=== PATIENT | female | born 1935 | race Hispanic/Latino ===

== ENCOUNTER 2017-03-29 09:01 | Inpatient (IN) | payer MEDICARE, BC ==
[2017-03-29 09:49] LABS: BASO # 0.01 K/mm3 (0.0-2.0); BASO % 0.3 % (0.0-3.0); EOS % 0.8 % (1.5-5.0); GRAN # 2.37 (1.4-6.5); GRAN % 64.2 % (50.0-68.0); HEMATOCRIT 33.1 % (36.0-48.0); LYMPH % 26.8 % (22.0-35.0); MEAN CELL VOLUME 81.5 fl (80.0-105.0); MEAN CORPUSCULAR HEMOGLOBIN 28.1 pg (25.0-35.0); MEAN CORPUSCULAR HGB CONC 34.4 g/dl (31.0-37.0); MEAN PLATELET VOLUME 8.1 fl (7.0-11.0); MONO # 0.3 (0.1-0.6); MONO % 7.9 % (1.0-6.0); RED CELL DISTRIBUTION WIDTH 13.3 % (11.5-14.5); WHITE BLOOD COUNT 3.7 10^3/ul (4.5-11.0)
[2017-03-29 09:58] LABS: ALB/GLOB RATIO 1.7 (1.1-1.8); ALKALINE PHOSPHATASE 63 U/L (38-126); ALT/SGPT 25 U/L (7-56); AST/SGOT 26 U/L (14-36); BILIRUBIN,TOTAL 0.4 mg/dL (0.2-1.3); BLOOD UREA NITROGEN 13 mg/dL (7-21); CALCIUM 9.5 mg/dL (8.4-10.5); CARBON DIOXIDE 28 mmol/L (21-33); CHLORIDE 97 mmol/L (98-107); GFR AFRICAN-AMERICAN > 60; GLUCOSE,RANDOM 129 mg/dL (70-110); LIPASE 21 U/L (23-300); POTASSIUM 4.4 mmol/L (3.6-5.0); SODIUM 134 mmol/L (132-148); TOTAL PROTEIN 6.9 g/dL (5.8-8.3)
--- NOTE | 2017-03-29 10:07 | RAD ---
HISTORY: Abdominal pain COMPARISON: 06/21/2016. FINDINGS: LUNGS: The lungs are hyperinflated and there is peribronchial thickening with chronic changes in both lungs. No focal consolidation. PLEURA: No significant pleural effusion identified, no pneumothorax apparent. CARDIOVASCULAR: Normal. OSSEOUS STRUCTURES: No significant abnormalities. VISUALIZED UPPER ABDOMEN: Normal. OTHER FINDINGS: None. IMPRESSION: No active pulmonary disease. COPD.
--- NOTE | 2017-03-29 10:13 | ED PDOC ---
Arrival/HPI - General Historian: Patient - History of Present Illness Time/Duration: > week Symptom Onset: Gradual Symptom Course: Worsening Quality: Cramping - General Chief Complaint: Abdominal Pain Time Seen by Provider: 03/29/17 09:20 - History of Present Illness Narrative History of Present Illness (Text): 03/29/17 10:06 81-year-old female presents today with lower abdominal pain and constipation 4 days. Patient describes a crampy sensation in the lower abdomen. Patient states she's been feeling extremely weak for the past 2 weeks and today she was unable to get out of bed. Patient denies chest pain or shortness of breath. Denies fevers or chills. Denies nausea or vomiting. Denies dizziness. Denies headache. Patient's history prior history of urinary tract infections in the past. (Leti Bedoya) Past Medical History - Provider Review Nursing Documentation Reviewed: Yes - Travel History Have you recently traveled outside [place] w/in the past 3 mons?: No - Infectious Disease Hx of Infectious Diseases: None - Tetanus Immunization Tetanus Immunization: Unknown - Cardiac Hx Cardiac Disorders: Yes Hx Hypertension: Yes Hx Peripheral Edema: Yes - Pulmonary Hx Respiratory Disorders: Yes Hx Asthma: (pt denies) - Neurological Hx Neurological Disorder: Yes Hx Dizziness: Yes Hx Parkinson's Disease: Yes Other/Comment: peripheral neuropathy numbness/burning to legs and feet - HEENT Hx HEENT Disorder: Yes (tinnitus) Hx Glaucoma: Yes Other/Comment: Wear glasses - Renal Hx Renal Disorder: No - Endocrine/Metabolic Hx Endocrine Disorders: Yes Hx Diabetes Mellitus Type 2: Yes - Hematological/Oncological Hx Blood Disorders: Yes Hx Anemia: Yes Hx Cancer: Yes (right breast lumpectomy followed with 6 wks of radiation) - Integumentary Hx Dermatological Disorder: Yes - Musculoskeletal/Rheumatological Hx Musculoskeletal Disorders: Yes 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) Hx Back Pain: Yes (chronic lower back) Hx Falls: No Hx Osteoarthritis: Yes Hx Unsteady Gait: Yes (walker) - Gastrointestinal Hx Gastrointestinal Disorders: Yes (constipation) - Genitourinary/Gynecological Hx Genitourinary Disorders: Yes (3 C/S) Hx Incontinence: Yes Hx Urinary Tract Infection: Yes - Psychiatric Hx Psychophysiologic Disorder: Yes Hx Depression: Yes Hx Substance Use: No - Surgical History Hx Hysterectomy: Yes (secondary to fibroid uterus) Hx Mastectomy: Yes (right breast) Hx Orthopedic Surgery: Yes (bilateral TKR) Other/Comment: pt denies foot sx - Anesthesia Hx Anesthesia: Yes Hx Anesthesia Reactions: No Hx Malignant Hyperthermia: No - Suicidal Assessment Feels Threatened In Home Enviroment: No Family/Social History - Physician Review Nursing Documentation Reviewed: Yes Family/Social History: Unknown Family HX Smoking Status: Never Smoked Hx Alcohol Use: No Hx Substance Use: No Hx Substance Use Treatment: No Allergies/Home Meds Allergies/Adverse Reactions: Allergies shellfish derived Allergy (Verified 03/29/17 09:04) SWELLING Home Medications: Home Meds Medication Instructions Recorded Confirmed Ergocalciferol (Vitamin D2) 50,000 units PO .WEEKLY 03/27/16 03/29/17 [Vitamin D] Lisinopril [Zestril] 10 mg PO DAILY 03/27/16 03/29/17 Gabapentin [Neurontin] 100 mg PO TID 06/21/16 03/29/17 metFORMIN [glucOPHAGE] 500 mg PO BID 06/21/16 03/29/17 Amitriptyline [Elavil] 30 mg PO HS 03/29/17 03/29/17 Review of Systems - Review of Systems Constitutional: Fatigue. absent: Fevers Respiratory: absent: SOB, Cough Cardiovascular: absent: Chest Pain, Palpitations Gastrointestinal: Abdominal Pain, Constipation. absent: Nausea, Vomiting Genitourinary Female: absent: Dysuria Musculoskeletal: absent: Arthralgias, Back Pain Skin: absent: Rash, Pruritis Neurological: absent: Headache, Dizziness Psychiatric: absent: Anxiety, Depression Physical Exam Vital Signs Reviewed: Yes Temperature: Afebrile Blood Pressure: Hypertensive Pulse: Regular Respiratory Rate: Normal Appearance: Positive for: Well-Appearing, Non-Toxic, Comfortable Pain Distress: None Mental Status: Positive for: Alert and Oriented X 3 - Systems Exam Head: Present: Atraumatic Mouth: Present: Moist Mucous Membranes Neck: Present: Normal Range of Motion Respiratory/Chest: Present: Clear to Auscultation, Good Air Exchange. No: Respiratory Distress, Accessory Muscle Use Cardiovascular: Present: Regular Rate and Rhythm, Normal S1, S2. No: Murmurs Abdomen: Present: Tenderness (+ minimal lower abdominal tenderness), Normal Bowel Sounds. No: Peritoneal Signs, Rebound, Guarding Back: Present: Normal Inspection Skin: Present: Warm, Dry Psychiatric: Present: Alert Vital Signs Temp Pulse Resp BP Pulse Ox 03/29/17 10:57 73 18 146/64 97 03/29/17 09:12 176/84 H 03/29/17 09:04 98.1 F 80 16 199/67 H 99 Medical Decision Making ED Course and Treatment: 03/29/17 10:49 I was available for consultation during PA evaluation. The chart was reviewed by me, and I agree with disposition. The documented history was done by the physician crop or grain farmer. The documented physical exam was done by the physician crop or grain farmer. The documented procedures were done by the physician crop or grain farmer. (Rubens Ortez) 03/29/17 10:13 81yr old female with generalized weakness and abdominal pain that has been worsening. cbc wnl cmp wnl trop wnl lipase wnl ekg; sinus rhythm with frequent pvcs and pacs no st elevations, normal intervals. cxr wnl UA: + bacteria; TNTC wbcs urine and blood cultures pending. 03/29/17 11:30 pt started on rocephin IV CT abdomen/pelvis; FINDINGS: LOWER THORAX: The lung bases are clear. LIVER: The liver is normal in size. No intrahepatic biliary ductal dilatation. GALLBLADDER AND BILE DUCTS: There are no calcified gallstones. There is layering gallbladder sludge. PANCREAS: There is mild diffuse atrophy of the pancreas. No ductal dilatation or calcifications. SPLEEN: The spleen is normal in size. ADRENALS: There is a 10 mm adenoma in the right adrenal gland and 18 mm adenoma in the left adrenal gland. KIDNEYS AND URETERS: Both kidneys are normal in size without hydronephrosis or nephrolithiasis. VASCULATURE: There are atherosclerotic aortoiliac calcifications. No aortic aneurysm. BOWEL: The small bowel loops are normal in caliber. There is fecalization of small bowel contents. There is large amount of stool in the colon and rectum. No bowel obstruction. APPENDIX: Normal appendix. PERITONEUM: No free fluid. No free air. LYMPH NODES: No enlarged lymph nodes. BLADDER: Unremarkable. REPRODUCTIVE: Unremarkable. BONES: No acute fracture. There is severe dextroscoliosis in the lumbar spine with multilevel degenerative disc disease. OTHER FINDINGS: None. IMPRESSION: 1. No acute abdominal or pelvic abnormality. 2. Constipation and fecalization of small bowel contents consistent with chronic stasis. No bowel obstruction. 3. Bilateral adrenal gland adenomas, larger on the left. case discussed with dr. mendoza; accepts admission impression; uti, generalized weakness admit med/surg; (Leti Bedoya) - Lab Interpretations Lab Results: 03/29/17 09:44 03/29/17 09:44 Lab Results 03/29/17 10:10: Lactate Dehydrogenase 325 L, Total Creatine Kinase < 20 L, Troponin I < 0.01 03/29/17 10:03: Urine Color Yellow, Urine Appearance Clear, Urine pH 6.5, Ur Specific [place] 1.015, Urine Protein Negative, Urine Glucose (UA) Negative, Urine Ketones Trace H, Urine Blood Negative, Urine Nitrate Negative, Urine Bilirubin Negative, Urine Urobilinogen 0.2, Ur Leukocyte Esterase Moderate H, Urine RBC Negative, Urine WBC Tntc, Ur Epithelial Cells 3 - 4, Urine Bacteria Mod 03/29/17 09:44: WBC 3.7 L D, RBC 4.06, Hgb 11.4 L, Hct 33.1 L, MCV 81.5, MCH 28.1, MCHC 34.4, RDW 13.3, Plt Count 262, MPV 8.1, Gran % 64.2, Lymph % (Auto) 26.8, [place] % (Auto) 7.9 H, Eos % (Auto) 0.8 L, Baso % (Auto) 0.3, Gran # 2.37, Lymph # 1.0 L, [place] # 0.3, Eos # 0.0, Baso # 0.01 03/29/17 09:44: Sodium 134, Potassium 4.4, Chloride 97 L, Carbon Dioxide 28, Anion Gap 13, BUN 13, Creatinine 0.6, Est GFR ( Amer) > 60, Est GFR (Non- Af Amer) > 60, Random Glucose 129 H, Calcium 9.5, Total Bilirubin 0.4, AST 26, ALT 25, Alkaline Phosphatase 63, Total Protein 6.9, Albumin 4.3, Globulin 2.6, Albumin/Globulin Ratio 1.7, Lipase 21 L - RAD Interpretation Radiology Orders: 03/29/17 09:21 CHEST PORTABLE [RAD] Stat 03/29/17 09:40 ABD & PELVIS W/O PO OR IV CONT [CT] Stat - Medication Orders Current Medication Orders: Discontinued Medications Ceftriaxone Sodium (Rocephin 1 Gram Ivpb) 1 g in 100 mls @ 200 mls/hr IVPB STAT STA PRN Reason: Protocol Stop: 03/29/17 11:43 Last Admin: 03/29/17 11:31 Dose: 200 mls/hr eMAR Start Stop Document 03/29/17 11:31 [facility] (Rec: 03/29/17 11:32 [facility] [id number]) Intravenous Solution Start Date 03/29/17 Start Time 11:31 End Date 03/29/17 End time 12:01 Total Infusion Time 30 Disposition/Present on Arrival - Present on Arrival Any Indicators Present on Arrival: No History of DVT/PE: No History of Uncontrolled Diabetes: No Urinary Catheter: No History of Decub. Ulcer: No History Surgical Site Infection Following: None - Disposition Have Diagnosis and Disposition been Completed?: Yes Disposition Time: 11:41 Patient Plan: Admission - Disposition Diagnosis: UTI (urinary tract infection), Weakness Disposition: HOSPITALIZED Patient Problems: Current Active Problems Problem Status Onset UTI (urinary tract infection) Acute Weakness Acute Condition: FAIR Discharge Instructions (ExitCare): Weakness (ED) Forms: [facility] (Urdu)
[2017-03-29 10:16] LABS: PH,URINE 6.5 (4.7-8.0); URINE BILIRUBIN NEGATIVE (NEGATIVE); URINE BLOOD NEGATIVE (NEGATIVE); URINE GLUCOSE (UA) NEGATIVE (NEGATIVE); URINE KETONE TRACE mg/dL (NEGATIVE); URINE LEUKOCYTE ESTERASE MODERATE Leu/uL (NEGATIVE); URINE PROTEIN NEGATIVE mg/dL (<30 mg/dL); URINE UROBILINOGEN 0.2 E.U./dL (<1 E.U./dL)
[2017-03-29 10:19] LABS: URINE APPEARANCE CLEAR (CLEAR); URINE COLOR YELLOW (YELLOW)
[2017-03-29 10:37] LABS: URINE BACTERIA MOD (NEG); URINE RBC NEGATIVE /hpf (0-2); URINE WBC TNTC /hpf (0-6)
[2017-03-29 10:44] LABS: TROPONIN I < 0.01 ng/mL
[2017-03-29] MEDS ORDERED: cefTRIAXone 1 gm 1 G/100 ML BAG IVPB STA (11:14)
--- NOTE | 2017-03-29 11:15 | CT ---
PROCEDURE: CT Abdomen and Pelvis without intravenous contrast HISTORY: Abdominal pain COMPARISON: None. TECHNIQUE: CT scan of the abdomen and pelvis was performed without administration of intravenous contrast. Oral contrast was not administered. Coronal and sagittal reformatted images were obtained. Radiation dose: Total exam DLP = 720.78 mGy-cm. This CT exam was performed using one or more of the following dose reduction techniques: Automated exposure control, adjustment of the mA and/or kV according to patient size, and/or use of iterative reconstruction technique. FINDINGS: LOWER THORAX: The lung bases are clear. LIVER: The liver is normal in size. No intrahepatic biliary ductal dilatation. GALLBLADDER AND BILE DUCTS: There are no calcified gallstones. There is layering gallbladder sludge. PANCREAS: There is mild diffuse atrophy of the pancreas. No ductal dilatation or calcifications. SPLEEN: The spleen is normal in size. ADRENALS: There is a 10 mm adenoma in the right adrenal gland and 18 mm adenoma in the left adrenal gland. KIDNEYS AND URETERS: Both kidneys are normal in size without hydronephrosis or nephrolithiasis. VASCULATURE: There are atherosclerotic aortoiliac calcifications. No aortic aneurysm. BOWEL: The small bowel loops are normal in caliber. There is fecalization of small bowel contents. There is large amount of stool in the colon and rectum. No bowel obstruction. APPENDIX: Normal appendix. PERITONEUM: No free fluid. No free air. LYMPH NODES: No enlarged lymph nodes. BLADDER: Unremarkable. REPRODUCTIVE: Unremarkable. BONES: No acute fracture. There is severe dextroscoliosis in the lumbar spine with multilevel degenerative disc disease. OTHER FINDINGS: None. IMPRESSION: 1. No acute abdominal or pelvic abnormality. 2. Constipation and fecalization of small bowel contents consistent with chronic stasis. No bowel obstruction. 3. Bilateral adrenal gland adenomas, larger on the left.
[2017-03-29 14:14] VITALS: BMI 30.9
[2017-03-30] MEDS: POLYETHYLENE GLYCOL 3350 17 GM/Dose PACKET PO SCH ×2 (10:18→17:30)
[2017-03-30] MEDS: LEVODOPA PO SCH ×3 (10:20→17:35)
[2017-03-30] MEDS: CARBIDOPA PO SCH ×3 (10:20→17:35)
[2017-03-30] MEDS: ENTACAPONE PO SCH ×3 (10:20→17:35)
[2017-03-30] MEDS: cefTRIAXone 1 gm 1 GM/100 ML BAG IVPB SCH (10:20)
--- NOTE | 2017-03-30 10:48 | CP.PCM.CON ---
<Anne-MarieFrancisca - Last Filed: 03/30/17 13:40> History of Present Illness - History of Present Illness History of Present Illness: Neurology Consult Note for Deyanira Silva PGY2 This is a 81Y F with PMH HTN, DM, parkinsons, breast cancer s/p lumpectomy and radiation who came to ED for abdominal pain, constipation and weakness x 4 days. She reports that she has been feeling weak x 2 weeks. Patient states she has been having less energy lately and it is hard for her to get out of bed. She is able to walk with a walker and lives with her son. She denies having any vision changes, increased rigidity, numbness/tingling, falls, increasing tremor , dizziness or headache. Of note, she was treated for UTI 2 weeks ago and is still having increased urinary frequency. She also has been complaining of constipation and abdominal pain. The pain is in the RLQ and LLQ and is cramping in nature. On admission, CT abd/pelvis showed constipation. For her Parkinson's she follow up with Dr. Martinez as outpatient who she says she sees every 3-4 months. PMH: HTN, DM with peripheral neuropathy, parkinsons, breast cancer s/p lumpectomy and radiation PSH: Bilateral knee replacements, Breast lumpectomy, C- section, hysterectomy Home meds: ASA, Sinemet, Metformin, Gabapentin, Lisinopril, All: [place] SH: Denies tobacco, EtOH or drug use. Review of Systems - Constitutional Constitutional: absent: Chills, Fever - EENT Eyes: absent: Change in Vision Nose/Mouth/Throat: absent: Dysphagia, Odynophagia - Cardiovascular Cardiovascular: absent: Chest Pain, Edema, Syncope - Respiratory Respiratory: absent: Cough, Dyspnea, Wheezing - Gastrointestinal Gastrointestinal: Abdominal Pain, Constipation. absent: Diarrhea, Nausea, Vomiting - Genitourinary Genitourinary: Urinary Frequency. absent: Dysuria, Hematuria, Pyuria - Musculoskeletal Musculoskeletal: absent: Arthralgias, Myalgias, Numbness, Stiffness, Tingling - Integumentary Integumentary: absent: Change in Hair, Change in Nails - Neurological Neurological: Weakness. absent: Abnormal Gait, Abnormal Movements, Abnormal Speech, Dizziness, Numbness, Focal Weakness, Loss of Vision, Memory Loss, Paresthesias, Sensory Deficit, Tingling - Psychiatric Psychiatric: absent: Anxiety, Depression Past Patient History - Infectious Disease Hx of Infectious Diseases: None - Tetanus Immunizations Tetanus Immunization: Unknown - Past Medical History & Family History Past Medical History?: Yes - Past Social History Smoking Status: Never Smoked Alcohol: None Drugs: Denies Home Situation {Lives}: With Family - CARDIAC Hx Cardiac Disorders: Yes Hx Hypertension: Yes Hx Peripheral Edema: Yes - PULMONARY Hx Respiratory Disorders: Yes Hx Asthma: (pt denies) - NEUROLOGICAL Hx Neurological Disorder: Yes Hx Dizziness: Yes Hx Parkinson's Disease: Yes Other/Comment: peripheral neuropathy numbness/burning to legs and feet - HEENT Hx HEENT Problems: Yes (tinnitus) Hx Glaucoma: Yes Other/Comment: Wear glasses - RENAL Hx Chronic Kidney Disease: No - ENDOCRINE/METABOLIC Hx Endocrine Disorders: Yes Hx Diabetes Mellitus Type 2: Yes - HEMATOLOGICAL/ONCOLOGICAL Hx Blood Disorders: Yes Hx Anemia: Yes Hx Cancer: Yes (right breast lumpectomy followed with 6 wks of radiation) - INTEGUMENTARY Hx Dermatological Problems: Yes - MUSCULOSKELETAL/RHEUMATOLOGICAL Hx Musculoskeletal Disorders: Yes 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) Hx Back Pain: Yes (chronic lower back) Hx Falls: No Hx Osteoarthritis: Yes Hx Unsteady Gait: Yes (walker) - GASTROINTESTINAL Hx Gastrointestinal Disorders: Yes (constipation) - GENITOURINARY/GYNECOLOGICAL Hx Genitourinary Disorders: Yes (3 C/S) Hx Incontinence: Yes Hx Urinary Tract Infection: Yes - PSYCHIATRIC Hx Psychophysiologic Disorder: Yes Hx Depression: Yes Hx Substance Use: No - SURGICAL HISTORY Hx Hysterectomy: Yes (secondary to fibroid uterus) Hx Mastectomy: Yes (right breast) Hx Orthopedic Surgery: Yes (bilateral TKR) Other/Comment: pt denies foot sx - ANESTHESIA Hx Anesthesia: Yes Hx Anesthesia Reactions: No Hx Malignant Hyperthermia: No Meds Allergies/Adverse Reactions: Allergies Allergy/AdvReac Type Severity Reaction Status Date / Time shellfish derived Allergy SWELLING Verified 03/29/17 09:04 - Medications Medications: Current Medications Amitriptyline HCl (Elavil) 30 mg PO HS JOSEPH Last Admin: 03/29/17 21:13 Dose: 30 mg Amlodipine Besylate (Norvasc) 10 mg PO DAILY JOSEPH Last Admin: 03/30/17 10:18 Dose: 10 mg Aspirin (Ecotrin) 81 mg PO DAILY [facility] Last Admin: 03/30/17 10:17 Dose: 81 mg Carbidopa/Levodopa (Sinemet) 1 tab PO HS [facility] Last Admin: 03/29/17 21:13 Dose: 1 tab Carbidopa/Levodopa/Entacapone (Stalevo 100) 1 tab PO TID [facility] Last Admin: 03/30/17 10:20 Dose: 1 tab Gabapentin (Neurontin) 100 mg PO TID [facility] PRN Reason: Protocol Last Admin: 03/30/17 10:18 Dose: 100 mg Ceftriaxone Sodium (Rocephin 1 Gram Ivpb) 1 gm in 100 mls @ 100 mls/hr IVPB DAILY [facility] PRN Reason: Protocol Last Admin: 03/30/17 10:20 Dose: 100 mls/hr Lactulose (Enulose) 30 gm PO DAILY [facility] Last Admin: 03/30/17 10:17 Dose: 30 gm Lisinopril (Zestril) 10 mg PO DAILY [facility] Last Admin: 03/30/17 10:21 Dose: 10 mg Polyethylene Glycol (Miralax) 17 gm PO BID [facility] Last Admin: 03/30/17 10:18 Dose: 17 gm Physical Exam - Constitutional Appears: Well - Head Exam Head Exam: ATRAUMATIC, NORMAL INSPECTION, NORMOCEPHALIC - Eye Exam Eye Exam: EOMI, Normal appearance, PERRL Pupil Exam: NORMAL ACCOMODATION, PERRL - ENT Exam ENT Exam: Mucous Membranes Moist - Neck Exam Neck exam: Positive for: Normal Inspection - Respiratory Exam Respiratory Exam: Clear to Auscultation Bilateral, NORMAL BREATHING PATTERN. absent: Rales, Rhonchi, Wheezes - Cardiovascular Exam Cardiovascular Exam: REGULAR RHYTHM, +S1, +S2. absent: Gallop, Rubs, Systolic Murmur - GI/Abdominal Exam GI & Abdominal Exam: Normal Bowel Sounds, Soft. absent: Guarding, Rigid, Tenderness - Extremities Exam Extremities exam: Positive for: normal inspection. Negative for: calf tenderness, pedal edema - Neurological Exam Neurological exam: Alert, CN II-XII Intact, Oriented x3 Additional comments: Mild cogwheel rigidity. No pill rolling tremor noted. Glabellar reflex + - Psychiatric Exam Psychiatric exam: Normal Affect, Normal Mood - Skin Skin Exam: Dry, Intact, Normal Color, Warm Results - Vital Signs Recent Vital Signs: Last Vital Signs Temp 98.6 F 03/30/17 08:26 Pulse 46 L 03/30/17 08:26 Resp 20 03/30/17 08:26 BP 153/74 H 03/30/17 10:18 Pulse Ox 97 03/30/17 08:26 - Labs Result Diagrams: 03/29/17 09:44 03/29/17 09:44 Assessment & Plan - Assessment and Plan (Free Text) Assessment: This is an 81Y F with PMH HTN, DM, parkinsons, breast cancer s/p lumpectomy and radiation admitted for abdominal pain, weakness who was found to have UTI. Neurology consulted for weakness and Parkinson's. Patient neurologically stable at this time. Plan: - Continue Stalevo and Sinemet - Continue with Lactulose for constipation- monitor electrolytes and correct accordingly - Follow up as outpatient with Dr. Martinez Thank you for this consultation. Please re-consult if needed. Case seen, discussed and reviewed with attending, Dr. Baldo Xie PGY2 - Date & Time Date: 03/30/17 Time: 13:53 <Ze Bland - Last Filed: 03/30/17 14:49> Meds - Medications Medications: Current Medications Amitriptyline HCl (Elavil) 30 mg PO HS [facility] Last Admin: 03/29/17 21:13 Dose: 30 mg Amlodipine Besylate (Norvasc) 10 mg PO DAILY [facility] Last Admin: 03/30/17 10:18 Dose: 10 mg Aspirin (Ecotrin) 81 mg PO DAILY [facility] Last Admin: 03/30/17 10:17 Dose: 81 mg Carbidopa/Levodopa (Sinemet) 1 tab PO HS [facility] Last Admin: 03/29/17 21:13 Dose: 1 tab Carbidopa/Levodopa/Entacapone (Stalevo 100) 1 tab PO TID [facility] Last Admin: 03/30/17 10:20 Dose: 1 tab Gabapentin (Neurontin) 100 mg PO TID [facility] PRN Reason: Protocol Last Admin: 03/30/17 10:18 Dose: 100 mg Ceftriaxone Sodium (Rocephin 1 Gram Ivpb) 1 gm in 100 mls @ 100 mls/hr IVPB DAILY [facility] PRN Reason: Protocol Last Admin: 03/30/17 10:20 Dose: 100 mls/hr Lactulose (Enulose) 30 gm PO DAILY [facility] Last Admin: 03/30/17 10:17 Dose: 30 gm Lisinopril (Zestril) 10 mg PO DAILY [facility] Last Admin: 03/30/17 10:21 Dose: 10 mg Polyethylene Glycol (Miralax) 17 gm PO BID [facility] Last Admin: 03/30/17 10:18 Dose: 17 gm Results - Vital Signs Recent Vital Signs: Last Vital Signs Temp 98.6 F 03/30/17 08:26 Pulse 46 L 03/30/17 08:26 Resp 20 03/30/17 08:26 BP 153/74 H 03/30/17 10:18 Pulse Ox 97 03/30/17 08:26 - Labs Result Diagrams: 03/29/17 09:44 03/29/17 09:44 Attending/Attestation - Attestation I have personally seen and examined this patient.: Yes I have fully participated in the care of the patient.: Yes I have reviewed all pertinent clinical information: Yes
--- NOTE | 2017-03-30 11:17 | CP.PCM.HP ---
<Annie Arireta - Last Filed: 03/30/17 12:47> History of Present Illness - History of Present Illness History of Present Illness: PGY-2 H&P for Dr. Baeza 81-year-old female with PMH of parkinsons presents today with lower abdominal pain and constipation for 5 days. Patient also reports weakness. Patient describes a crampy sensation in the lower abdomen. Patient states she's been feeling weak for the past 2 weeks. She states taht she previously had no difficulty moving throughout her apartment but now she is having trouble getting up from her chair. Patient states that 2 weeks ago she was treated fro UTI. Patient denies chest pain, sob, fevers, chills, nausea, vomiting, dizziness , headache, dysuria. CT abd/pel showed constipation and fecalization of small bowel contents consistent with chronic stasis, no bowel obstruction. PMH: parkinson's, HTN, peripheral neuropathy, DM, breast ca PSH: hysterectomy, , bilateral knee replacements, lumpectomy social hx: denies smoking, etoh use, illicit drug use allergy: shellfish Present on Admission - Present on Admission Any Indicators Present on Admission: No Review of Systems - Constitutional Constitutional: Weakness. absent: Chills, Fever, Headache - EENT Eyes: absent: Blurred Vision, Change in Vision Nose/Mouth/Throat: absent: Nasal Congestion, Nasal Discharge, Sore Throat - Cardiovascular Cardiovascular: absent: Chest Pain, Chest Pain at Rest, Dyspnea, Edema - Respiratory Respiratory: absent: Cough, Dyspnea, Hemoptysis - Gastrointestinal Gastrointestinal: absent: Abdominal Pain, Constipation, Diarrhea, Nausea, Vomiting - Genitourinary Genitourinary: absent: Difficulty Urinating, Dysuria, Flank Pain, Hematuria - Musculoskeletal Musculoskeletal: absent: Deformity, Joint Swelling, Muscle Weakness, Numbness, Tingling - Integumentary Integumentary: absent: Pruritus, Rash, Skin Ulcer, Swelling - Neurological Neurological: absent: Dizziness, Numbness, Headaches, Syncope - Hematologic/Lymphatic Hematologic: absent: Easy Bleeding, Easy Bruising Past Patient History - Infectious Disease Hx of Infectious Diseases: None - Tetanus Immunizations Tetanus Immunization: Unknown - Past Medical History & Family History Past Medical History?: Yes - Past Social History Smoking Status: Never Smoked - CARDIAC Hx Cardiac Disorders: Yes Hx Hypertension: Yes Hx Peripheral Edema: Yes - PULMONARY Hx Respiratory Disorders: Yes Hx Asthma: (pt denies) - NEUROLOGICAL Hx Neurological Disorder: Yes Hx Dizziness: Yes Hx Parkinson's Disease: Yes Other/Comment: peripheral neuropathy numbness/burning to legs and feet - HEENT Hx HEENT Problems: Yes (tinnitus) Hx Glaucoma: Yes Other/Comment: Wear glasses - RENAL Hx Chronic Kidney Disease: No - ENDOCRINE/METABOLIC Hx Endocrine Disorders: Yes Hx Diabetes Mellitus Type 2: Yes - HEMATOLOGICAL/ONCOLOGICAL Hx Blood Disorders: Yes Hx Anemia: Yes Hx Cancer: Yes (right breast lumpectomy followed with 6 wks of radiation) - INTEGUMENTARY Hx Dermatological Problems: Yes - MUSCULOSKELETAL/RHEUMATOLOGICAL Hx Musculoskeletal Disorders: Yes 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) Hx Back Pain: Yes (chronic lower back) Hx Falls: No Hx Osteoarthritis: Yes Hx Unsteady Gait: Yes (walker) - GASTROINTESTINAL Hx Gastrointestinal Disorders: Yes (constipation) - GENITOURINARY/GYNECOLOGICAL Hx Genitourinary Disorders: Yes (3 C/S) Hx Incontinence: Yes Hx Urinary Tract Infection: Yes - PSYCHIATRIC Hx Psychophysiologic Disorder: Yes Hx Depression: Yes Hx Substance Use: No - SURGICAL HISTORY Hx Hysterectomy: Yes (secondary to fibroid uterus) Hx Mastectomy: Yes (right breast) Hx Orthopedic Surgery: Yes (bilateral TKR) Other/Comment: pt denies foot sx - ANESTHESIA Hx Anesthesia: Yes Hx Anesthesia Reactions: No Hx Malignant Hyperthermia: No Meds Allergies/Adverse Reactions: Allergies Allergy/AdvReac Type Severity Reaction Status Date / Time shellfish derived Allergy SWELLING Verified 03/29/17 09:04 Physical Exam - Constitutional Appears: Well, No Acute Distress - Head Exam Head Exam: ATRAUMATIC, NORMAL INSPECTION, NORMOCEPHALIC - Eye Exam Eye Exam: EOMI, Normal appearance - ENT Exam ENT Exam: Mucous Membranes Moist - Respiratory Exam Respiratory Exam: Clear to Auscultation Bilateral, NORMAL BREATHING PATTERN. absent: Rhonchi, Wheezes, Respiratory Distress - Cardiovascular Exam Cardiovascular Exam: REGULAR RHYTHM, +S1, +S2. absent: Tachycardia, Diastolic murmur, Systolic Murmur - GI/Abdominal Exam GI & Abdominal Exam: Normal Bowel Sounds, Soft. absent: Distended, Firm, Guarding, Tenderness - Extremities Exam Extremities exam: Positive for: normal inspection. Negative for: pedal edema, tenderness - Back Exam Back exam: NORMAL INSPECTION - Neurological Exam Neurological exam: Alert, Oriented x3 - Skin Skin Exam: Dry, Intact, Normal Color, Warm Results - Vital Signs Recent Vital Signs: Last Vital Signs Temp 98.6 F 03/30/17 08:26 Pulse 46 L 03/30/17 08:26 Resp 20 03/30/17 08:26 BP 153/74 H 03/30/17 10:18 Pulse Ox 97 03/30/17 08:26 - Labs Result Diagrams: 03/29/17 09:44 03/29/17 09:44 Assessment & Plan - Assessment and Plan (Free Text) Assessment: 81-year-old female with PMH of parkinsons presents today with lower abdominal pain, constipation for 5 days and general weakness. CT abd/pel showed constipation and fecalization of small bowel contents consistent with chronic stasis, no bowel obstruction. Plan: 1. constripation - most likely cause of abd pain - start lactulose, and mirlax 2. UTI - postive UA - f/u urine cultures - cont ceftriaxone, will reevaluate once cultures return 3. parkinson's - cont home med carbidop/levodopa - consult neuro <Amilcar Baeza S - Last Filed: 03/30/17 21:42> Results - Vital Signs Recent Vital Signs: Last Vital Signs Temp 98.4 F 03/30/17 16:00 Pulse 69 03/30/17 16:00 Resp 18 03/30/17 16:00 BP 133/69 03/30/17 16:00 Pulse Ox 97 03/30/17 16:00 - Labs Result Diagrams: 03/29/17 09:44 03/29/17 09:44 Labs: Laboratory Results - last 24 hr 03/30/17 21:10 POC Glucose (mg/dL) 166 H Assessment & Plan - Assessment and Plan (Free Text) Plan: Pt seen and examined by me.Note of medical photographer reviewed. Labs reviewed and medications reviewed.PT evaluation. Pt with severe constipation. UCx pending. IV Abx.
--- NOTE | 2017-03-30 16:07 | CARD ---
APPROVED REPORT EKG Measurement Heart [id number] <Conclusion> Sinus rhythm with frequent premature ventricular complexes and premature atrial complexes Cannot rule out Anterior infarct, age undetermined Abnormal ECG
[2017-03-30 16:39] VITALS: RESP 18
[2017-03-31 07:42] LABS: MEAN CELL VOLUME 81.4 fl (80.0-105.0); MEAN CORPUSCULAR HGB CONC 34.4 g/dl (31.0-37.0); MEAN PLATELET VOLUME 8.6 fl (7.0-11.0); RED CELL DISTRIBUTION WIDTH 13.3 % (11.5-14.5); WHITE BLOOD COUNT 4.2 10^3/ul (4.5-11.0)
[2017-03-31 07:54] LABS: ALB/GLOB RATIO 1.5 (1.1-1.8); ALKALINE PHOSPHATASE 51 U/L (38-126); ALT/SGPT 26 U/L (7-56); AST/SGOT 25 U/L (14-36); BILIRUBIN,TOTAL 0.5 mg/dL (0.2-1.3); BLOOD UREA NITROGEN 10 mg/dL (7-21); CALCIUM 9.3 mg/dL (8.4-10.5); CARBON DIOXIDE 29 mmol/L (21-33); CHLORIDE 96 mmol/L (95-110); GFR AFRICAN-AMERICAN > 60; GLUCOSE,RANDOM 91 mg/dL (70-110); POTASSIUM 4.1 mmol/L (3.6-5.0); SODIUM 133 mmol/L (132-148); TOTAL PROTEIN 6.4 g/dL (5.8-8.3)
--- NOTE | 2017-03-31 08:08 | CP.PCM.PN ---
<Annie Arrieta - Last Filed: 03/31/17 11:52> Subjective - Date & Time of Evaluation Date of Evaluation: 03/31/17 Time of Evaluation: 08:05 - Subjective Subjective: PGY-[address] Baeza Patient seen and examined at bedside. No acute distress. Patient states that she continues to feel weak. She reports 1 small BM yesterday. She denies any chest pain, sob, fever, chill. Tolerating diet. Objective - Vital Signs/Intake and Output Vital Signs (last 24 hours): Temp Pulse Resp BP Pulse Ox 98.4 F 69 18 133/69 97 03/30/17 16:00 03/30/17 16:00 03/30/17 16:00 03/30/17 16:00 03/30/17 16:00 Intake and Output: 03/31/17 03/31/17 06:59 18:59 Intake Total 660 Balance 660 - Medications Medications: Current Medications Amitriptyline HCl (Elavil) 30 mg PO [facility] Last Admin: 03/30/17 21:52 Dose: 30 mg Amlodipine Besylate (Norvasc) 10 mg PO DAILY [facility] Last Admin: 03/30/17 10:18 Dose: 10 mg Aspirin (Ecotrin) 81 mg PO DAILY [facility] Last Admin: 03/30/17 10:17 Dose: 81 mg Carbidopa/Levodopa (Sinemet) 1 tab PO [facility] Last Admin: 03/30/17 21:53 Dose: 1 tab Carbidopa/Levodopa/Entacapone (Stalevo 100) 1 tab PO TID [facility] Last Admin: 03/30/17 17:35 Dose: 1 tab Gabapentin (Neurontin) 100 mg PO TID [facility] PRN Reason: Protocol Last Admin: 03/30/17 17:35 Dose: 100 mg Ceftriaxone Sodium (Rocephin 1 Gram Ivpb) 1 gm in 100 mls @ 100 mls/hr IVPB DAILY [facility] PRN Reason: Protocol Last Admin: 03/30/17 10:20 Dose: 100 mls/hr Lactulose (Enulose) 30 gm PO DAILY [facility] Last Admin: 03/30/17 10:17 Dose: 30 gm Lisinopril (Zestril) 10 mg PO DAILY [facility] Last Admin: 03/30/17 10:21 Dose: 10 mg Polyethylene Glycol (Miralax) 17 gm PO BID [facility] Last Admin: 03/30/17 17:30 Dose: 17 gm - Labs Labs: 03/31/17 07:37 03/31/17 07:37 - Constitutional Appears: Well, No Acute Distress - Head Exam Head Exam: ATRAUMATIC, NORMAL INSPECTION, NORMOCEPHALIC - Eye Exam Eye Exam: EOMI, Normal appearance - ENT Exam ENT Exam: Mucous Membranes Moist - Respiratory Exam Respiratory Exam: Clear to Ausculation Bilateral, NORMAL BREATHING PATTERN. absent: Decreased Breath Sounds, Rales, Rhonchi, Wheezes, Respiratory Distress - Cardiovascular Exam Cardiovascular Exam: REGULAR RHYTHM, +S1, +S2. absent: Tachycardia, Murmur - GI/Abdominal Exam GI & Abdominal Exam: Soft, Normal Bowel Sounds. absent: Distended, Firm, Tenderness - Extremities Exam Extremities Exam: Normal Inspection. absent: Pedal Edema - Neurological Exam Neurological Exam: Alert, Awake, CN II-XII Intact, Oriented x3 - Skin Skin Exam: Dry, Intact, Normal Color, Warm Assessment and Plan - Assessment and Plan (Free Text) Assessment: 81-year-old female with PMH of Parkinson presents today with lower abdominal pain, constipation for 5 days and general weakness. CT abd/pel showed constipation and fecalization of small bowel contents consistent with chronic stasis, no bowel obstruction. Plan: 1. constipation - most likely cause of abd pain - most likely due to Parkinson - small BM yesterday - cont lactulose, and mirlax 2. UTI - positive UA - urine cultures showed gram neg luz, - cont ceftriaxone, will switch to PO medication upon D/C home 3. Parkinson's - cont home med sinemet, stalevo - consult neuro, recommended cont home meds, f/u outpatient - PT recommended TCU - TCU eval <Amilcar Baeza S - Last Filed: 03/31/17 16:27> Objective - Vital Signs/Intake and Output Vital Signs (last 24 hours): Temp Pulse Resp BP Pulse Ox 98.5 F 60 18 137/63 98 03/31/17 08:46 03/31/17 08:46 03/31/17 08:46 03/31/17 11:10 03/31/17 08:46 Intake and Output: 03/31/17 03/31/17 06:59 18:59 Intake Total 660 Balance 660 - Medications Medications: Current Medications Amitriptyline HCl (Elavil) 30 mg PO HS [facility] Last Admin: 03/30/17 21:52 Dose: 30 mg Amlodipine Besylate (Norvasc) 10 mg PO DAILY [facility] Last Admin: 03/31/17 11:10 Dose: 10 mg Aspirin (Ecotrin) 81 mg PO DAILY [facility] Last Admin: 03/31/17 11:04 Dose: 81 mg Carbidopa/Levodopa (Sinemet) 1 tab PO HS [facility] Last Admin: 03/30/17 21:53 Dose: 1 tab Carbidopa/Levodopa/Entacapone (Stalevo 100) 1 tab PO TID [facility] Last Admin: 03/31/17 13:38 Dose: 1 tab Gabapentin (Neurontin) 100 mg PO TID [facility] PRN Reason: Protocol Last Admin: 03/31/17 13:37 Dose: 100 mg Ceftriaxone Sodium (Rocephin 1 Gram Ivpb) 1 gm in 100 mls @ 100 mls/hr IVPB DAILY [facility] PRN Reason: Protocol Last Admin: 03/31/17 11:11 Dose: 100 mls/hr Lactulose (Enulose) 30 gm PO BID [facility] Lisinopril (Zestril) 10 mg PO DAILY [facility] Last Admin: 03/31/17 11:11 Dose: 10 mg Polyethylene Glycol (Miralax) 17 gm PO BID [facility] Last Admin: 03/31/17 11:09 Dose: 17 gm - Labs Labs: 03/31/17 07:37 03/31/17 07:37 Assessment and Plan - Assessment and Plan (Free Text) Plan: Pt seen and examined. Reviewed the note of the resident and I agree with it. Meds and labs reviewed. UTI due to E Coli.She is willing to go to TCU for rehab. Will need PT.
[2017-03-31] MEDS: POLYETHYLENE GLYCOL 3350 17 GM/Dose PACKET PO SCH ×2 (11:09→17:47)
[2017-03-31] MEDS: ENTACAPONE PO SCH ×3 (11:11→18:44)
[2017-03-31] MEDS: CARBIDOPA PO SCH ×3 (11:11→18:44)
[2017-03-31] MEDS: LEVODOPA PO SCH ×3 (11:11→18:44)
[2017-03-31] MEDS: cefTRIAXone 1 gm 1 GM/100 ML BAG IVPB SCH (11:11)
--- NOTE | 2017-04-01 08:37 | CP.PCM.PN ---
<Annie Arrieta - Last Filed: 04/01/17 09:55> Subjective - Date & Time of Evaluation Date of Evaluation: 04/01/17 Time of Evaluation: 08:34 - Subjective Subjective: PGY-[address] Baeza Patient seen and examined at bedside. No acute distress. Patient states that she continues to feel weak, but is getting better. She denies having any BM yesterday, she continues to have mild abd pain. She is tolerating diet. Denies chest pain, fever, chill, dysuria. Objective - Vital Signs/Intake and Output Vital Signs (last 24 hours): Temp Pulse Resp BP Pulse Ox 98.4 F 60 18 128/55 L 98 03/31/17 16:00 03/31/17 16:00 03/31/17 16:00 03/31/17 16:00 03/31/17 16:00 Intake and Output: 04/01/17 04/01/17 06:59 18:59 Intake Total 660 Balance 660 - Medications Medications: Current Medications Amitriptyline HCl (Elavil) 30 mg PO HS [facility] Last Admin: 03/31/17 22:40 Dose: 30 mg Amlodipine Besylate (Norvasc) 10 mg PO DAILY [facility] Last Admin: 03/31/17 11:10 Dose: 10 mg Aspirin (Ecotrin) 81 mg PO DAILY [facility] Last Admin: 03/31/17 11:04 Dose: 81 mg Carbidopa/Levodopa (Sinemet) 1 tab PO HS [facility] Last Admin: 03/31/17 22:41 Dose: 1 tab Carbidopa/Levodopa/Entacapone (Stalevo 100) 1 tab PO TID [facility] Last Admin: 03/31/17 18:44 Dose: 1 tab Gabapentin (Neurontin) 100 mg PO TID [facility] PRN Reason: Protocol Last Admin: 03/31/17 18:41 Dose: 100 mg Ceftriaxone Sodium (Rocephin 1 Gram Ivpb) 1 gm in 100 mls @ 100 mls/hr IVPB DAILY [facility] PRN Reason: Protocol Last Admin: 03/31/17 11:11 Dose: 100 mls/hr Lactulose (Enulose) 30 gm PO BID [facility] Last Admin: 03/31/17 17:45 Dose: 30 gm Lisinopril (Zestril) 10 mg PO DAILY [facility] Last Admin: 03/31/17 11:11 Dose: 10 mg Polyethylene Glycol (Miralax) 17 gm PO BID [facility] Last Admin: 03/31/17 17:47 Dose: 17 gm - Labs Labs: 03/31/17 07:37 03/31/17 07:37 - Constitutional Appears: Well, No Acute Distress - Head Exam Head Exam: ATRAUMATIC, NORMAL INSPECTION, NORMOCEPHALIC - Eye Exam Eye Exam: EOMI, Normal appearance - ENT Exam ENT Exam: Mucous Membranes Moist - Respiratory Exam Respiratory Exam: Clear to Ausculation Bilateral, NORMAL BREATHING PATTERN. absent: Decreased Breath Sounds, Rales, Rhonchi, Wheezes, Respiratory Distress - Cardiovascular Exam Cardiovascular Exam: REGULAR RHYTHM, +S1, +S2. absent: Tachycardia, Murmur - GI/Abdominal Exam GI & Abdominal Exam: Soft, Normal Bowel Sounds. absent: Distended, Firm, Guarding, Tenderness - Extremities Exam Extremities Exam: Normal Inspection. absent: Pedal Edema, Tenderness - Neurological Exam Neurological Exam: Alert, Awake, Oriented x3 - Skin Skin Exam: Dry, Intact, Normal Color, Warm Assessment and Plan - Assessment and Plan (Free Text) Assessment: 81-year-old female with PMH of Parkinson presents today with lower abdominal pain, constipation for 5 days and general weakness. CT abd/pel showed constipation and fecalization of small bowel contents consistent with chronic stasis, no bowel obstruction. Plan: 1. constipation - most likely cause of abd pain - most likely due to Parkinson - no BM yesterday - fleet enemia - cont lactulose, and mirlax 2. UTI - positive UA - urine cultures showed gram neg luz, - cont ceftriaxone 3. Parkinson's - cont home med sinemet, stalevo - consult neuro, recommended cont home meds, f/u outpatient - PT recommended TCU patient will be d/c to TCU today <Amilcar Baeza - Last Filed: 04/01/17 20:17> Objective - Vital Signs/Intake and Output Vital Signs (last 24 hours): Temp Pulse Resp BP Pulse Ox 97.2 F L 65 18 124/57 L 98 04/01/17 17:30 04/01/17 17:30 04/01/17 17:30 04/01/17 17:30 04/01/17 17:30 Intake and Output: 04/01/17 04/02/17 18:59 06:59 Intake Total 360 Balance 360 - Labs Labs: 03/31/17 07:37 03/31/17 07:37 Assessment and Plan - Assessment and Plan (Free Text) Plan: Pt seen and examined. Agree with above note of medical customer service representative. Labs and meds reviewed. Pt with E Coli UTI. She is agreeable TCU. Ethan send once bed is available.
[2017-04-01] MEDS: LEVODOPA PO SCH ×3 (10:00→17:31)
[2017-04-01] MEDS: ENTACAPONE PO SCH ×3 (10:00→17:31)
[2017-04-01] MEDS: CARBIDOPA PO SCH ×3 (10:00→17:31)
[2017-04-01] MEDS: cefTRIAXone 1 gm 1 GM/100 ML BAG IVPB SCH (10:04)
[2017-04-01] MEDS: POLYETHYLENE GLYCOL 3350 17 GM/Dose PACKET PO SCH ×2 (10:04→17:29)
[2017-04-01 17:31] VITALS: BP 124/57; PULSE 65; TEMP 97.2; O2SAT 98
== END 2017-04-01 18:54 | DRG 690 ==
LOC: ED 09:01 → ERH 12:29 → 3RSO 14:11
PROVIDERS: ADMIT Internal Medicine Nephrology; ATTEND Internal Medicine Nephrology
DX: N39.0 Urinary tract infection, site not specified (principal); E11.42 Type 2 diabetes mellitus with diabetic polyneuropathy; G20 Parkinson's disease; K59.00 Constipation, unspecified; D35.01 Benign neoplasm of right adrenal gland; D35.02 Benign neoplasm of left adrenal gland; H40.9 Unspecified glaucoma; I10 Essential (primary) hypertension; Z79.899 Other long term (current) drug therapy; Z85.3 Personal history of malignant neoplasm of breast; Z87.440 Personal history of urinary (tract) infections; Z90.710 Acquired absence of both cervix and uterus; Z96.653 Presence of artificial knee joint, bilateral; H93.19 Tinnitus, unspecified ear; D64.9 Anemia, unspecified; M06.9 Rheumatoid arthritis, unspecified; M54.5 Low back pain; M19.90 Unspecified osteoarthritis, unspecified site; R26.81 Unsteadiness on feet; R32 Unspecified urinary incontinence; F32.89 Other specified depressive episodes; Z91.013 Allergy to seafood; Z92.3 Personal history of irradiation; B96.20 Unspecified Escherichia coli [E. coli] as the cause of diseases classified elsewhere

== ENCOUNTER 2017-04-01 18:54 | Inpatient (IN) | payer OTHER, BC ==
[2017-04-02] MEDS: Amoxicillin-Clav 500-125 mg Tab PO SCH ×2 (10:37→17:19)
[2017-04-02] MEDS: POLYETHYLENE GLYCOL 3350 17 GM/Dose PACKET PO SCH ×2 (10:39→17:22)
[2017-04-02] MEDS: ENTACAPONE PO SCH ×3 (10:41→17:22)
[2017-04-02] MEDS: LEVODOPA PO SCH ×3 (10:41→17:22)
[2017-04-02] MEDS: CARBIDOPA PO SCH ×3 (10:41→17:22)
--- NOTE | 2017-04-02 12:47 | CP.PCM.HP ---
<Annie Arrieta - Last Filed: 04/02/17 12:43> History of Present Illness - History of Present Illness History of Present Illness: PGY-2 H&P for Dr. Baeza 81-year-old female with PMH of parkinsons who initially presented to the hospital with weakness and abdominal pain due to constipation. Patient was transferred to TCU yesterday for continued PT and treatment for UTI. Patient states that her abd pain has improved. She received a fleet enema yesterday. Patient reports weakness that has been improving. Patient was found to be positive for e. coli in the urine. She also reports a new pain in bilateral heels. She describes the pain as a burning. It began after she started her PT. Patient denies chest pain, sob, fevers, chills, nausea, vomiting, dizziness, headache, dysuria. PMH: parkinson's, HTN, peripheral neuropathy, DM, breast ca PSH: hysterectomy, , bilateral knee replacements, lumpectomy social hx: denies smoking, etoh use, illicit drug use allergy: shellfish Present on Admission - Present on Admission Any Indicators Present on Admission: No Review of Systems - Constitutional Constitutional: Weakness. absent: Chills, Fever, Headache - EENT Eyes: absent: Blurred Vision, Change in Vision Nose/Mouth/Throat: absent: Nasal Congestion, Nasal Discharge, Sore Throat - Cardiovascular Cardiovascular: absent: Chest Pain, Diaphoresis, Dyspnea, Leg Edema - Respiratory Respiratory: absent: Cough, Dyspnea, Hemoptysis, Wheezing - Gastrointestinal Gastrointestinal: Constipation. absent: Abdominal Pain, Bloating, Diarrhea, Nausea, Vomiting - Genitourinary Genitourinary: absent: Difficulty Urinating, Dysuria, Hematuria - Musculoskeletal Musculoskeletal: absent: Joint Swelling, Myalgias, Numbness, Stiffness, Tingling Additional comments: heal pain bilaterally - Integumentary Integumentary: absent: Pruritus, Rash, Skin Ulcer, Sores, Wounds - Neurological Neurological: Weakness. absent: Dizziness, Numbness, Focal Weakness, Syncope, Tingling - Hematologic/Lymphatic Hematologic: absent: Easy Bleeding, Easy Bruising Past Patient History - Infectious Disease Hx of Infectious Diseases: None - Tetanus Immunizations Tetanus Immunization: Unknown - Past Medical History & Family History Past Medical History?: Yes - Past Social History Smoking Status: Never Smoked - CARDIAC Hx Cardiac Disorders: Yes Hx Hypertension: Yes - PULMONARY Hx Respiratory Disorders: Yes Hx Asthma: (pt denies) - NEUROLOGICAL Hx Neurological Disorder: Yes Hx Dizziness: Yes Hx Parkinson's Disease: Yes Other/Comment: peripheral neuropathy numbness/burning to legs and feet - HEENT Hx HEENT Problems: Yes (tinnitus) Hx Glaucoma: Yes Other/Comment: Wear glasses - RENAL Hx Chronic Kidney Disease: No - ENDOCRINE/METABOLIC Hx Diabetes Mellitus Type 2: Yes - HEMATOLOGICAL/ONCOLOGICAL Hx Blood Disorders: Yes Hx Anemia: Yes Hx Cancer: Yes (right breast lumpectomy followed with 6 wks of radiation) - INTEGUMENTARY Hx Dermatological Problems: Yes - MUSCULOSKELETAL/RHEUMATOLOGICAL 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) - GASTROINTESTINAL Hx Gastrointestinal Disorders: Yes (constipation) - GENITOURINARY/GYNECOLOGICAL Hx Reproductive Disorders: No - PSYCHIATRIC Hx Psychophysiologic Disorder: Yes Hx Depression: Yes Hx Substance Use: No - SURGICAL HISTORY Hx Hysterectomy: Yes (secondary to fibroid uterus) Hx Mastectomy: Yes (right breast) Hx Orthopedic Surgery: Yes (bilateral TKR) Other/Comment: pt denies foot sx - ANESTHESIA Hx Anesthesia: Yes Hx Anesthesia Reactions: No Hx Malignant Hyperthermia: No Meds Allergies/Adverse Reactions: Allergies Allergy/AdvReac Type Severity Reaction Status Date / Time shellfish derived Allergy SWELLING Verified 03/29/17 09:04 Physical Exam - Constitutional Appears: Well, No Acute Distress - Head Exam Head Exam: ATRAUMATIC, NORMAL INSPECTION, NORMOCEPHALIC - Eye Exam Eye Exam: EOMI, Normal appearance - ENT Exam ENT Exam: Mucous Membranes Moist - Respiratory Exam Respiratory Exam: Clear to Auscultation Bilateral, NORMAL BREATHING PATTERN. absent: Decreased Breath Sounds, Rales, Rhonchi, Wheezes, Respiratory Distress - Cardiovascular Exam Cardiovascular Exam: REGULAR RHYTHM, +S1, +S2. absent: Tachycardia, Diastolic murmur, Systolic Murmur - GI/Abdominal Exam GI & Abdominal Exam: Normal Bowel Sounds, Soft. absent: Distended, Firm, Guarding, Tenderness - Extremities Exam Extremities exam: Positive for: normal inspection, tenderness. Negative for: pedal edema - Neurological Exam Neurological exam: Alert, CN II-XII Intact, Oriented x3 - Skin Skin Exam: Dry, Intact, Normal Color, Warm Results - Vital Signs Recent Vital Signs: Last Vital Signs Temp 97.9 F 04/02/17 11:14 Pulse 62 04/02/17 11:14 Resp 12 04/02/17 11:14 BP 142/66 04/02/17 11:14 Pulse Ox 99 04/02/17 11:14 Assessment & Plan - Assessment and Plan (Free Text) Assessment: 81-year-old female with PMH of Parkinson admitted for weakness, UTI, and constipation, transferred to TCU for PT. Plan: 1. constipation - most likely cause of patient's abd pain. constipation most likely due to Parkinson - fleet enema yesterday, pain has improved - cont lactulose, and mirlax 2. UTI- e. coli - positive UA - urine cultures showed e. coli - cont augmentin PO for 5 days 3. Parkinson's - cont home med sinemet, stalevo - f/u outpatient neurologist once d/c - cont PT 4. heel pain - possible due to increased PT - patient is currently on gabapentin <Amilcar Baeza S - Last Filed: 04/02/17 21:31> Results - Vital Signs Recent Vital Signs: Last Vital Signs Temp 98.2 F 04/02/17 16:45 Pulse 80 04/02/17 16:45 Resp 14 04/02/17 16:45 BP 122/57 L 04/02/17 16:45 Pulse Ox 99 04/02/17 16:45 Assessment & Plan - Assessment and Plan (Free Text) Plan: Pt seen and examined. Agree with above note of medical device sales consultant. Meds reviewed. Pt going to TCU for rehab. Spoke to PT, pt is improving. On Augmentin for E Coli UTI
--- NOTE | 2017-04-03 07:24 | PN ---
DATE: 04/03/2017 SUBJECTIVE: The patient has no complaints of any chest pain, no shortness of breath, no headaches. PHYSICAL EXAMINATION VITAL SIGNS: Temperature is 98.2, pulse is 80, blood pressure is 122/57, respiration is 14. GENERAL: The patient is lying in bed, flat, comfortable. HEENT: No oral lesion. Anicteric sclerae. Moist mucosa. NECK: No JVD, adenopathy, or thyromegaly. CARDIOVASCULAR: S1 and S2, regular. No murmurs, rubs, or gallops. LUNGS: Clear to auscultation bilaterally. No wheeze, rales, or rhonchi. ABDOMEN: Bowel sounds are positive, soft, nontender and nondistended. EXTREMITIES: no cyanosis, clubbing or edema. ASSESSMENT: 1. Constipation. 2. Urinary tract infection secondary to Escherichia coli. 3. Parkinson. 4. Osteoarthritis. 5. Obese with body mass index of 31. 6. Hypertension. PLAN: The patient is clinically for therapy. She is on Flagyl as well as amlodipine for her hypertension. She is going to continue with her carbidopa levodopa. She is on ibuprofen. She is on MiraLax for her constipation as well as lactulose. The patient is on aspirin daily. She is on heart healthy diet. She is working with physical therapy. She will continue to do so. She did not feel antibiotics for her E. coli infection. Amilcar Baeza MD
[2017-04-03] MEDS: Amoxicillin-Clav 500-125 mg Tab PO SCH ×2 (11:44→17:50)
[2017-04-03] MEDS: LEVODOPA PO SCH ×3 (11:46→17:50)
[2017-04-03] MEDS: CARBIDOPA PO SCH ×3 (11:46→17:50)
[2017-04-03] MEDS: ENTACAPONE PO SCH ×3 (11:46→17:50)
[2017-04-03] MEDS: POLYETHYLENE GLYCOL 3350 17 GM/Dose PACKET PO SCH ×2 (11:48→17:50)
[2017-04-04] MEDS: Amoxicillin-Clav 500-125 mg Tab PO SCH ×2 (10:26→17:57)
[2017-04-04] MEDS: POLYETHYLENE GLYCOL 3350 17 GM/Dose PACKET PO SCH ×2 (10:29→17:59)
[2017-04-04] MEDS: CARBIDOPA PO SCH ×3 (10:30→17:58)
[2017-04-04] MEDS: ENTACAPONE PO SCH ×3 (10:30→17:58)
[2017-04-04] MEDS: LEVODOPA PO SCH ×3 (10:30→17:58)
[2017-04-04] MEDS: Brimonidine 0.15% 50 DROP/5 ML BOTTLE OU SCH (17:57)
[2017-04-04] MEDS: Dorzolamide 2%/Timolol 0.5% 100 DROP/10 ML BOTTLE OU SCH (17:57)
[2017-04-05] MEDS: Brimonidine 0.15% 50 DROP/5 ML BOTTLE OU SCH ×2 (09:52→17:47)
[2017-04-05] MEDS: Dorzolamide 2%/Timolol 0.5% 100 DROP/10 ML BOTTLE OU SCH ×2 (09:52→17:47)
[2017-04-05] MEDS: Amoxicillin-Clav 500-125 mg Tab PO SCH ×2 (09:52→17:47)
[2017-04-05] MEDS: POLYETHYLENE GLYCOL 3350 17 GM/Dose PACKET PO SCH ×2 (09:55→17:49)
[2017-04-05] MEDS: CARBIDOPA PO SCH ×3 (09:58→17:48)
[2017-04-05] MEDS: ENTACAPONE PO SCH ×3 (09:58→17:48)
[2017-04-05] MEDS: LEVODOPA PO SCH ×3 (09:58→17:48)
[2017-04-06 07:39] LABS: HEMATOCRIT 32.6 % (36.0-48.0); MEAN CELL VOLUME 81.5 fl (80.0-105.0); MEAN CORPUSCULAR HEMOGLOBIN 27.5 pg (25.0-35.0); MEAN CORPUSCULAR HGB CONC 33.7 g/dl (31.0-37.0); MEAN PLATELET VOLUME 8.5 fl (7.0-11.0); RED CELL DISTRIBUTION WIDTH 12.9 % (11.5-14.5); WHITE BLOOD COUNT 3.5 10^3/ul (4.5-11.0)
[2017-04-06 07:50] LABS: ALB/GLOB RATIO 1.5 (1.1-1.8); ALKALINE PHOSPHATASE 55 U/L (38-126); ALT/SGPT 19 U/L (7-56); AST/SGOT 23 U/L (14-36); BILIRUBIN,TOTAL 0.4 mg/dL (0.2-1.3); BLOOD UREA NITROGEN 12 mg/dL (7-21); CALCIUM 9.2 mg/dL (8.4-10.5); CARBON DIOXIDE 30 mmol/L (21-33); CHLORIDE 97 mmol/L (98-107); GFR AFRICAN-AMERICAN > 60; GLUCOSE,RANDOM 114 mg/dL (70-110); POTASSIUM 4.3 mmol/L (3.6-5.0); SODIUM 133 mmol/L (132-148); TOTAL PROTEIN 6.3 g/dL (5.8-8.3)
--- NOTE | 2017-04-06 09:43 | PN ---
DATE: 04/06/2017 SUBJECTIVE: The patient has no complaints of any chest pain, no shortness of breath, no headaches or dizziness. She says that she is having bowel movements 3 times a day. PHYSICAL EXAMINATION: VITAL SIGNS: Temperature is 98.3, pulse of 50, blood pressure is 107/50, respiration is 16. GENERAL: The patient is lying in bed, flat, comfortable. HEENT: No oral lesion. Anicteric sclerae. Moist mucosa. NECK: No JVD, adenopathy, or thyromegaly. CARDIOVASCULAR: S1 and S2, regular. No murmurs, rubs, or gallops. LUNGS: Clear to auscultation bilaterally. No wheeze, rales, or rhonchi. ABDOMEN: Bowel sounds are positive, soft, nontender and nondistended. EXTREMITIES: No cyanosis, clubbing or edema. LABORATORY DATA: White count of 3.5, hemoglobin 11.0, creatinine is 0.6. ASSESSMENT: 1. Constipation. 2. Gait dysfunction. 3. Urinary tract infection secondary to Escherichia coli. 4. Parkinson. 5. Osteoarthritis. 6. Obesity with a body mass index of 31. PLAN: The patient is on currently on Elavil. She is going to continue on aspirin. She is on antibiotics with Augmentin. She is on lactulose. I will discontinue the patient's lactulose. She is going to continue her MiraLax. She is walking better. She is on her Sinemet for her Parkinson. She is on lisinopril for her hypertension. Her labs have been reviewed. She is advised that she is going to be discharge home . Amilcar Baeza MD
[2017-04-06] MEDS: LEVODOPA PO SCH ×3 (11:00→18:27)
[2017-04-06] MEDS: ENTACAPONE PO SCH ×3 (11:00→18:27)
[2017-04-06] MEDS: CARBIDOPA PO SCH ×3 (11:00→18:27)
[2017-04-06] MEDS: Dorzolamide 2%/Timolol 0.5% 100 DROP/10 ML BOTTLE OU SCH ×2 (11:44→18:29)
[2017-04-06] MEDS: POLYETHYLENE GLYCOL 3350 17 GM/Dose PACKET PO SCH ×2 (11:45→18:28)
[2017-04-06] MEDS: Brimonidine 0.15% 50 DROP/5 ML BOTTLE OU SCH ×2 (11:46→18:26)
[2017-04-06] MEDS: Amoxicillin-Clav 500-125 mg Tab PO SCH ×2 (11:49→18:28)
[2017-04-07] MEDS: Dorzolamide 2%/Timolol 0.5% 100 DROP/10 ML BOTTLE OU SCH ×2 (10:47→17:56)
[2017-04-07] MEDS: Brimonidine 0.15% 50 DROP/5 ML BOTTLE OU SCH ×2 (10:47→17:56)
[2017-04-07] MEDS: POLYETHYLENE GLYCOL 3350 17 GM/Dose PACKET PO SCH ×2 (10:48→17:56)
[2017-04-07] MEDS: LEVODOPA PO SCH ×3 (10:49→17:56)
[2017-04-07] MEDS: CARBIDOPA PO SCH ×3 (10:49→17:56)
[2017-04-07] MEDS: ENTACAPONE PO SCH ×3 (10:49→17:56)
[2017-04-08] MEDS: Dorzolamide 2%/Timolol 0.5% 100 DROP/10 ML BOTTLE OU SCH ×2 (10:26→17:34)
[2017-04-08] MEDS: Brimonidine 0.15% 50 DROP/5 ML BOTTLE OU SCH ×2 (10:26→17:34)
[2017-04-08] MEDS: POLYETHYLENE GLYCOL 3350 17 GM/Dose PACKET PO SCH ×2 (10:27→17:35)
[2017-04-08] MEDS: CARBIDOPA PO SCH ×3 (10:27→17:35)
[2017-04-08] MEDS: ENTACAPONE PO SCH ×3 (10:27→17:35)
[2017-04-08] MEDS: LEVODOPA PO SCH ×3 (10:27→17:35)
--- NOTE | 2017-04-08 11:48 | CP.PCM.CON ---
History of Present Illness - History of Present Illness History of Present Illness: 81 year old female with PMHx of peripheral neuropathy, DM, HTN, Parkinson's, and breast cancer was consulted for podiatry for bilaterally heel pain. She is seen resting comfortably in bed, AA0x3, and in NAD. She reports having heel pain in the middle of the night. She describes the pain as a burning pain that wakes her up from her sleep. She states the pain sometimes radiate distally to her toes. She reports the pain 10/10 when it does occur. Currently she has no pain, rating her pain 0/10. In the past she has tried offloading boots without any help. She denies n/v/sob/cp/chills or f. She reports weakness. PSH: hysterectomy, , bilateral knee replacements, lumpectomy SH: denies smoking, etoh use, illicit drug use FH: Parkinson's ALL: shellfish Meds: see medication list Past Patient History - Infectious Disease Hx of Infectious Diseases: None - Tetanus Immunizations Tetanus Immunization: Unknown - Past Medical History & Family History Past Medical History?: Yes - Past Social History Smoking Status: Never Smoked - CARDIAC Hx Hypertension: Yes - PULMONARY Hx Respiratory Disorders: Yes Hx Asthma: (pt denies) - NEUROLOGICAL Hx Neurological Disorder: Yes Hx Dizziness: Yes Hx Parkinson's Disease: Yes Other/Comment: peripheral neuropathy numbness/burning to legs and feet - HEENT Hx HEENT Problems: Yes (tinnitus) Hx Glaucoma: Yes Other/Comment: Wear glasses - RENAL Hx Chronic Kidney Disease: No - ENDOCRINE/METABOLIC Hx Diabetes Mellitus Type 2: Yes - HEMATOLOGICAL/ONCOLOGICAL Hx Blood Disorders: Yes Hx Anemia: Yes Hx Cancer: Yes (right breast lumpectomy followed with 6 wks of radiation) - INTEGUMENTARY Hx Dermatological Problems: Yes - MUSCULOSKELETAL/RHEUMATOLOGICAL 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) - GASTROINTESTINAL Hx Gastrointestinal Disorders: Yes (constipation) - GENITOURINARY/GYNECOLOGICAL Hx Genitourinary Disorders: Yes (3 C/S) Hx Incontinence: Yes Hx Urinary Tract Infection: Yes - PSYCHIATRIC Hx Psychophysiologic Disorder: Yes Hx Depression: Yes - SURGICAL HISTORY Hx Hysterectomy: Yes (secondary to fibroid uterus) Hx Mastectomy: Yes (right breast) Hx Orthopedic Surgery: Yes (bilateral TKR) Other/Comment: pt denies foot sx - ANESTHESIA Hx Anesthesia: Yes Hx Anesthesia Reactions: No Hx Malignant Hyperthermia: No Meds Allergies/Adverse Reactions: Allergies Allergy/AdvReac Type Severity Reaction Status Date / Time shellfish derived Allergy SWELLING Verified 04/06/17 08:32 - Medications Medications: Current Medications Amitriptyline HCl (Elavil) 30 mg PO HS JOSEPH PRN Reason: Protocol Last Admin: 04/07/17 22:02 Dose: 30 mg Aspirin (Ecotrin) 81 mg PO DAILY JOSEPH PRN Reason: Protocol Last Admin: 04/08/17 10:27 Dose: 81 mg Brimonidine Tartrate (Alphagan P 0.15% Opht) 0 drop OU BID JOSEPH PRN Reason: Protocol Last Admin: 04/08/17 10:26 Dose: 1 drop Carbidopa/Levodopa (Sinemet) 1 tab PO HS JOSEPH PRN Reason: Protocol Last Admin: 04/07/17 22:02 Dose: 1 tab Carbidopa/Levodopa/Entacapone (Stalevo 100) 1 tab PO TID JOSEPH PRN Reason: Protocol Last Admin: 04/08/17 10:27 Dose: 1 tab Dorzolamide/Timolol (Cosopt 2%-0.5% Opht) 0 drop OU BID JOSEPH PRN Reason: Protocol Last Admin: 04/08/17 10:26 Dose: 1 drop Gabapentin (Neurontin) 100 mg PO TID JOSEPH PRN Reason: Protocol Last Admin: 04/08/17 10:27 Dose: 100 mg Ibuprofen (Motrin Tab) 600 mg PO Q6H PRN; Protocol PRN Reason: pain Polyethylene Glycol (Miralax) 17 gm PO BID JOSEPH PRN Reason: Protocol Last Admin: 04/08/17 10:27 Dose: 17 gm Physical Exam - Constitutional Appears: Well, Non-toxic, No Acute Distress - Extremities Exam Additional comments: Vasc: DP 2/4, PT nonpalpable, CFT <3 seconds x10 digits, temperature gradient WNL, warm to cool, proximal to distal Ortho: MM is 4/5 secondary to age and Parkinson's, pain to the posterior heels bilaterally, no pain with palpation to the plantarly heels Neuro: gross and protective sensation diminished bilaterally Derm: no deep tissue injury noted, skin is WNL, no erythema, no ulcerations, no clinical signs of infection - Neurological Exam Neurological exam: Alert, Oriented x3 - Psychiatric Exam Psychiatric exam: Normal Affect, Normal Mood Results - Vital Signs Recent Vital Signs: Last Vital Signs Temp 97.9 F 04/08/17 06:00 Pulse 56 L 04/08/17 06:00 Resp 20 04/08/17 06:00 BP 131/55 L 04/08/17 06:00 Pulse Ox 97 04/08/17 06:00 - Labs Result Diagrams: 04/06/17 07:33 04/06/17 07:33 Assessment & Plan - Assessment and Plan (Free Text) Assessment: 81 year old female with PMHx of peripheral neuropathy, DM, HTN, Parkinson's, and breast cancer with bilaterally posterior heel pain sequela to peripheral neuropathy Plan: Pt seen and examined at bedside Charts, labs, vitals reviewed (afebrile, absent leukocytosis) Discussed the plan in detail with attending Dr. Bradley Continue Gabapentin for peripheral neuropathy Recommends Metanx Recommends offloading heels with two pillows X-rays ordered to r/o bony pathology Thank you for the consult. Please consult as needed.
--- NOTE | 2017-04-08 14:40 | RAD ---
PROCEDURE: Bilateral Feet Radiographs. HISTORY: bilaterally heel pain COMPARISON: None. FINDINGS: BONES: Right Foot: Old fracture of the 2nd metatarsal Left Foot: Large surgical demarcus are seen in the calcaneus and talus JOINTS: Right Foot: Normal. No osteoarthritis. Left Foot: Normal. No osteoarthritis. SOFT TISSUES: Right Foot: Normal. Left Foot: Normal. OTHER FINDINGS: None. IMPRESSION: No acute findings
[2017-04-08 16:55] VITALS: BP 125/62; PULSE 71; RESP 16; TEMP 97.7; O2SAT 100
[2017-04-09 09:15] LABS: PH,URINE 7.5 (4.7-8.0); URINE BILIRUBIN NEGATIVE (NEGATIVE); URINE BLOOD NEGATIVE (NEGATIVE); URINE GLUCOSE (UA) NEGATIVE (NEGATIVE); URINE KETONE NEGATIVE (NEGATIVE); URINE LEUKOCYTE ESTERASE TRACE Leu/uL (NEGATIVE); URINE PROTEIN NEGATIVE mg/dL (<30 mg/dL); URINE UROBILINOGEN 0.2 E.U./dL (<1 E.U./dL)
[2017-04-09 09:22] LABS: URINE APPEARANCE CLEAR (CLEAR); URINE COLOR YELLOW (YELLOW)
[2017-04-09 09:23] LABS: URINE EPITHELIAL CELLS 0 - 2 /hpf (0-5); URINE RBC NEGATIVE /hpf (0-2)
--- NOTE | 2017-04-09 09:35 | DS ---
HISTORY OF PRESENT ILLNESS: The patient initially was admitted to the transitional care unit for rehab. The patient has no complaints of any headaches or dizziness. She is complaining of foot pain. She had an x-ray done of the left feet. On the right foot, there is an old fascia in the second metatarsal. On the left, there is a large surgical staple seen in the calcaneus and talus. The patient is going to be discharged today. There are possible transfer to subacute rehab. The patient has no complaints of any chest pain, shortness of breath. No headaches or dizziness. PHYSICAL EXAMINATION: VITAL SIGNS: Temperature is 97.7, pulse of 71, blood pressure is 125/62, respirations 16 and O2 saturation is 100%. GENERAL: The patient is lying in bed, flat, comfortable. HEENT: No oral lesion. Anicteric sclerae. Moist mucosa. NECK: No JVD, adenopathy, or thyromegaly. CARDIOVASCULAR: S1 and S2, regular. No murmurs, rubs, or gallops. LUNGS: Clear to auscultation bilaterally. No wheeze, rales, or rhonchi. ABDOMEN: Bowel sounds are positive, soft, nontender and nondistended. EXTREMITIES: No cyanosis, clubbing or edema. ASSESSMENT: 1. Constipation. 2. Gait dysfunction. 3. Urinary tract infection secondary to Escherichia coli. 4. Parkinson. 5. Osteoarthritis. 6. Obesity with a body mass index of 31. 7. History of right old second metatarsal fracture. 8. Left surgical staple in the calcaneus and talus. PLAN: The patient is currently on her Elavil. She is going to continue with aspirin. She is on her eyedrops for her glaucoma. She is on ibuprofen as needed. The patient is on Neurontin for her neuropathy. She is on Sinemet for her Parkinson's. She is on a heart healthy diet. Condition is stable. Activities increase as tolerated. Follow up with primary care doctor in 1 to 2 weeks. Follow up with podiatry. If her pain continues, she is being followed by podiatry. Amilcar Baeza MD [facility] # [id number]
[2017-04-09] MEDS: Brimonidine 0.15% 50 DROP/5 ML BOTTLE OU SCH (10:15)
[2017-04-09] MEDS: Dorzolamide 2%/Timolol 0.5% 100 DROP/10 ML BOTTLE OU SCH (10:15)
[2017-04-09] MEDS: POLYETHYLENE GLYCOL 3350 17 GM/Dose PACKET PO SCH (10:16)
[2017-04-09] MEDS: LEVODOPA PO SCH (10:16)
[2017-04-09] MEDS: CARBIDOPA PO SCH (10:16)
[2017-04-09] MEDS: ENTACAPONE PO SCH (10:16)
--- NOTE | 2017-04-09 11:39 | PN ---
SUBJECTIVE: The patient has no complaints of any chest pain, no shortness of breath, no headaches or dizziness. She initially was admitted to the transitional care unit for rehabilitation. She says that she is feeling better and walking better, but she does complain of pain in the left heel. She says she is fatigued. She has difficulty with walking on her own and needs assistance. PHYSICAL EXAMINATION: VITAL SIGNS: Temperature is 97.9, pulse is 56, blood pressure is 131/55, respirations 20. GENERAL: The patient is lying in bed, flat, comfortable. HEENT: No oral lesion. Anicteric sclerae. Moist mucosa. NECK: No JVD, adenopathy, or thyromegaly. CARDIOVASCULAR: S1 and S2, regular. No murmurs, rubs, or gallops. LUNGS: Clear to auscultation bilaterally. No wheeze, rales, or rhonchi. ABDOMEN: Bowel sounds are positive, soft, nontender and nondistended. EXTREMITIES: No cyanosis, clubbing or edema. LABORATORY DATA: White count is 3.5, hemoglobin 11, creatinine is 0.6. ASSESSMENT: 1. Constipation. 2. Urinary tract infection secondary to Escherichia coli resolved. 3. Gait dysfunction. 4. Parkinson. 5. Osteoarthritis. 6. Obesity with a body mass index of 31. 7. Left ankle pain. PLAN: The patient is on currently on aspirin. She is going to continue on timolol for glaucoma. She is on Alphagan for eyes as well as she is receiving ibuprofen as needed. She is on MiraLax for constipation. She is on Neurontin for neuropathy. She was on blood pressure medications, they have been discontinued because of the patient's blood pressure that is low. The patient is on heart healthy diet. I suggested to the patient that she may need subacute rehab. If she wants to continue with her rehabilitation, we will have social contact worker speak to the patient's family. Amilcar Baeza MD
== END 2017-04-09 13:29 | disposition home or self-care (01) | DRG 690 ==
LOC: TRCU 18:54
PROVIDERS: ADMIT Internal Medicine Nephrology; ATTEND Internal Medicine Nephrology
PROC: F07Z9FZ Gait Training/Functional Ambulation Treatment using Assistive, Adaptive, Supportive or Protective Equipment (ICD-10-PCS; principal; 2017-04-02)
PROC: F07M6ZZ Therapeutic Exercise Treatment of Musculoskeletal System - Whole Body (ICD-10-PCS; 2017-04-02)
PROC: F08Z2ZZ Grooming/Personal Hygiene Treatment (ICD-10-PCS; 2017-04-02)
PROC: F08Z1ZZ Dressing Techniques Treatment (ICD-10-PCS; 2017-04-02)
DX: N39.0 Urinary tract infection, site not specified (principal); E11.42 Type 2 diabetes mellitus with diabetic polyneuropathy; G20 Parkinson's disease; B96.20 Unspecified Escherichia coli [E. coli] as the cause of diseases classified elsewhere; K59.00 Constipation, unspecified; R26.9 Unspecified abnormalities of gait and mobility; M19.90 Unspecified osteoarthritis, unspecified site; E66.9 Obesity, unspecified; Z68.31 Body mass index [BMI] 31.0-31.9, adult; Z87.81 Personal history of (healed) traumatic fracture; H40.9 Unspecified glaucoma; I10 Essential (primary) hypertension; Z85.3 Personal history of malignant neoplasm of breast; Z87.440 Personal history of urinary (tract) infections; Z90.710 Acquired absence of both cervix and uterus; Z96.653 Presence of artificial knee joint, bilateral; D64.9 Anemia, unspecified; F32.89 Other specified depressive episodes; Z90.11 Acquired absence of right breast and nipple; Z91.013 Allergy to seafood; R42 Dizziness and giddiness; H93.19 Tinnitus, unspecified ear; R32 Unspecified urinary incontinence; M25.572 Pain in left ankle and joints of left foot